=== PATIENT | male | born 1980 | race Caucasian/White ===

== ENCOUNTER → 2024-04-11 | Outpatient (CLI) | payer OTHER, SELFPAY ==
[2024-04-11 12:48] LABS: Basophils % (Auto) 0 % (0-2.5); Eosinophils # (Auto) 0.2 Thou/mm3 (0.0-0.5); Eosinophils % (Auto) 2 % (0-10); Hematocrit 46.6 % (41.0-53.0); Hemoglobin 15.5 g/dL (13.5-16.0); Immature Granulocytes % (Auto) 3 % (0-0); Immature Granulocytes Auto 0.22 Thou/mm3 (0.00-0.00); Lymphocytes # (Auto) 2.6 Thou/mm3 (1.0-4.8); Lymphocytes % (Auto) 36 % (10-50); Mean Corpuscular HGB Conc 33.3 g/dl (31.0-37.0); Mean Corpuscular Hemoglobin 28.6 pg (25.0-35.0); Mean Corpuscular Volume 86 fL (80-100); Monocytes # (Auto) 0.6 Thou/mm3 (0.0-0.8); Monocytes % (Auto) 8 % (0-12); Neutrophils # (Auto) 3.7 Thou/mm3 (1.8-7.7); Neutrophils % (Auto) 51 % (37-80); Nucleated Red Blood Cell % 0 /100 WBC (0); Platelet Count 285 Thou/mm3 (140-440); RDW Standard Deviation 40.2 fL (35.1-43.9); Red Blood Count 5.42 Miln/mm3 (4.50-5.90); White Blood Count 7.4 Thou/mm3 (3.8-10.6)
[2024-04-11 12:58] LABS: Glucose Estimated Average 151 mg/dL (80-131); Hemoglobin A1C 6.9 % Hgb (4.8-6.0)
[2024-04-11 13:03] LABS: Creatinine MALB Rnd Ur 126 mg/dL (30-125); Microalbumin Creat Ratio 2 mg/gCrea (<30); Microalbumin, Random Urine 3 mg/L (0-300)
[2024-04-11 13:07] LABS: Alanine Aminotransferase 47 U/L (10-49); Albumin, Serum 4.4 gm/dL (3.5-5.0); Albumin/Globulin Ratio 1.9 (1.2-2.2); Alkaline Phosphatase 46 U/L (46-116); Anion Gap 5 (7-16); Aspartate Amino Transferase 22 U/L (0-34); BUN/Creatinine Ratio 16 Ratio (12-20); Bilirubin,Total 0.5 mg/dL (0.3-1.2); Blood Urea Nitrogen 16 mg/dL (9-23); C-Reactive Protein < 0.4 mg/dL (0.0-0.9); Calcium 9.5 mg/dL (8.3-10.6); Calcium (Corrected) 9.5 mg/dL (8.5-10.1); Carbon Dioxide 26.6 mMol/L (20.0-31.0); Chloride 106 mMol/L (98-107); Globulin 2.3 gm/dL (2.3-3.5); Glucose 131 mg/dL (74-106); Osmolality,Calculated 278 (275-295); Potassium 4.7 mMol/L (3.4-5.1); Sodium 138 mMol/L (136-145); Thyroid Stimulating Hormone 1.67 uIU/mL (0.55-4.78); Total Protein 6.7 gm/dL (5.7-8.2); eGFR > 60 See Note
[2024-04-11 13:20] LABS: Sed Rate (ESR) 27 mm/hr (0-15)
== END | disposition home or self-care (01) ==
LOC: COPL 11:29
PROVIDERS: PCP Specialist; Referring Provider Specialist; Visit Provider Specialist
DX: I10 Essential (primary) hypertension (principal)
CPT/HCPCS: 36415; 80053; 82043; 82570; 83036; 84443; 85025; 85652; 86140

== ENCOUNTER → 2024-05-19 | Outpatient (CLI) | payer OTHER, SELFPAY ==
[2024-05-19 11:56] LABS: Glucose Estimated Average 140 mg/dL (80-131); Hemoglobin A1C 6.5 % Hgb (4.8-6.0)
[2024-05-19 12:05] LABS: Creatinine MALB Rnd Ur 138 mg/dL (30-125); Microalbumin, Random Urine < 3 mg/L (0-300)
[2024-05-19 12:10] LABS: Alanine Aminotransferase 23 U/L (10-49); Albumin, Serum 4.7 gm/dL (3.5-5.0); Albumin/Globulin Ratio 1.9 (1.2-2.2); Alkaline Phosphatase 46 U/L (46-116); Anion Gap 7 (7-16); Aspartate Amino Transferase 15 U/L (0-34); BUN/Creatinine Ratio 16 Ratio (12-20); Bilirubin,Total 0.6 mg/dL (0.3-1.2); Blood Urea Nitrogen 18 mg/dL (9-23); Calcium 10.1 mg/dL (8.3-10.6); Calcium (Corrected) 10.1 mg/dL (8.5-10.1); Carbon Dioxide 26.9 mMol/L (20.0-31.0); Cardiac Risk Estimate 4.6 RATIO (4.0-6.7); Chloride 105 mMol/L (98-107); Cholesterol 230 mg/dL (132-200); Creatinine (Component) 1.1 mg/dL (0.6-1.3); Globulin 2.5 gm/dL (2.3-3.5); Glucose 112 mg/dL (74-106); HDL Cholesterol 50 mg/dL (40-60); LDL Cholesterol,Calculated 161 mg/dL (0-130); Osmolality,Calculated 280 (275-295); Potassium 4.8 mMol/L (3.4-5.1); Sodium 139 mMol/L (136-145); Total Protein 7.2 gm/dL (5.7-8.2); Triglycerides 96 mg/dL (30-150); eGFR > 60 See Note
== END | disposition home or self-care (01) ==
LOC: COPL 10:30
PROVIDERS: PCP Specialist; Referring Provider Specialist; Visit Provider Specialist
DX: E11.65 Type 2 diabetes mellitus with hyperglycemia (principal)
CPT/HCPCS: 36415; 80053; 80061; 82043; 82570; 83036

== ENCOUNTER → 2024-07-12 | Outpatient (CLI) | payer OTHER, SELFPAY ==
[2024-07-12 12:18] LABS: Glucose Estimated Average 131 mg/dL (80-131); Hemoglobin A1C 6.2 % Hgb (4.8-6.0)
[2024-07-12 13:11] LABS: Alanine Aminotransferase 23 U/L (10-49); Albumin, Serum 4.3 gm/dL (3.5-5.0); Albumin/Globulin Ratio 1.5 (1.2-2.2); Alkaline Phosphatase 50 U/L (46-116); Anion Gap 6 (7-16); Aspartate Amino Transferase 20 U/L (0-34); BUN/Creatinine Ratio 13 Ratio (12-20); Bilirubin,Total 0.6 mg/dL (0.3-1.2); Blood Urea Nitrogen 14 mg/dL (9-23); Calcium 9.8 mg/dL (8.3-10.6); Calcium (Corrected) 9.8 mg/dL (8.5-10.1); Chloride 105 mMol/L (98-107); Creatinine (Component) 1.1 mg/dL (0.6-1.3); Globulin 2.8 gm/dL (2.3-3.5); Glucose 104 mg/dL (74-106); Osmolality,Calculated 279 (275-295); Potassium 4.8 mMol/L (3.4-5.1); Sodium 140 mMol/L (136-145); Total Protein 7.1 gm/dL (5.7-8.2); eGFR > 60 See Note
[2024-07-12 13:25] LABS: Cholesterol 195 mg/dL (132-200); HDL Cholesterol 49 mg/dL (40-60); LDL Cholesterol,Calculated 125 mg/dL (0-130); Triglycerides 104 mg/dL (30-150)
[2024-07-12 14:02] LABS: Creatinine MALB Rnd Ur 139 mg/dL (30-125); Microalbumin, Random Urine < 3 mg/L (0-300)
== END | disposition home or self-care (01) ==
LOC: COPL 11:33
PROVIDERS: PCP Specialist; Referring Provider Specialist; Visit Provider Specialist
DX: E11.69 Type 2 diabetes mellitus with other specified complication (principal)
CPT/HCPCS: 36415; 80053; 80061; 82043; 82570; 83036

== ENCOUNTER 2024-08-28 11:03 | Emergency (ER) | payer OTHER, SELFPAY ==
[2024-08-28 11:05] VITALS: BMI 38.4
--- NOTE | 2024-08-28 11:34 | XR_ITS ---
Examination: CT abdomen and pelvis without contrast. Coronal 3-D reconstructions. Sagittal 2-D reconstructions. Date and time of exam:August 28, 2024 1215 hours INDICATIONS: Left-sided flank pain with nausea vomiting beginning this morning CTDI: vol (mGy): 12.8 DLP: (mGycm): 888 Technique: Axial images of the abdomen have been obtained, 3 mm slice thickness Intravenous contrast material has not been administered. Low dose protocols were performed. One or more of the following dose reduction techniques were used; automated exposure control, adjustment of the mA and/or KV according to patient size, use of iterative reconstruction technique. Findings: No focal liver or splenic lesion No gallstones No pancreatic or adrenal mass Bilateral tiny 1 to 2 mm renal calculi No hydronephrosis or ureteral calculi Aorta normal size Normal appendix No bowel obstruction 2 mm calculus in the urinary bladder IMPRESSION: Tiny bilateral nonobstructing renal calculi No hydronephrosis or ureteral calculi 2 mm calculus in the urinary bladder
--- NOTE | 2024-08-28 11:34 | PD.EDABDPN ---
ED Abdominal Pain RME/HPI General Chief Complaint: Abdominal Pain Stated complaint: SHARP PAIN L) SIDE/FLANK/ABD (01/14) Arrival date/time: 08/28/24 11:03 43-year-old male with no known medical history presents to the emergency room with a chief complaint of left-sided flank pain and abdominal pain x 1 day Source: patient Mode of arrival: ambulatory Limitations: no limitations Related Data Home Medications ?Medication ?Instructions ?Recorded ?Confirmed multivitamin 1 tab PO QAM 01/19/23 01/20/23 amoxicillin 875 mg-potassium 1 tab PO BID 01/20/23 01/20/23 clavulanate 125 mg tablet Allergies Allergy/AdvReac Type Severity Reaction Status Date / Time No Known Allergies Allergy Verified 08/28/24 11:09 ED Exam General Limitations: Present no limitations Course Orders Category Date Time Status CT abdomen pelvis wo con Stat Exams 08/28/24 11:34 Ordered CBC Stat Lab 08/28/24 11:34 Ordered CMP [Comprehensive Metabolic Panel] Stat Lab 08/28/24 11:34 Ordered Lipase Stat Lab 08/28/24 11:34 Ordered UA [Urinalysis] Stat Lab 08/28/24 11:34 Ordered Urine Culture Stat Lab 08/28/24 11:34 Ordered Discharge Plan Prescriptions/Referrals Prescriptions/Med Rec: No Action multivitamin Tablet 1 tab PO QAM amoxicillin-pot clavulanate 875-125 mg tablet 1 tab PO BID Patient Comments: TAKE 1 TABLET BY MOUTH TWICE A DAY Patient/Caregiver Discharge Instructions Print Language: Romanian
[2024-08-28 11:35] VITALS: BP 123/76; PULSE 98; RESP 18; TEMP 37; O2SAT 97; BMI 40.1
--- NOTE | 2024-08-28 11:36 | PD.EDRME ---
Rapid Medical Screening Exam RME Arrival date/time: 08/28/24 11:03 43-year-old male with no known medical history presents to the emergency room with a chief complaint of left-sided flank pain and abdominal pain x 1 day I have greeted and performed a focused initial assessment of this patient. A comprehensive ED assessment and evaluation of the patient, analysis of all test results, and completion of the medical decision making process will be conducted by additional ED providers. Chief Complaint: Abdominal Pain Time Seen by Provider: 08/28/24 11:35 Vital signs: Vital Signs Temperature 98.6 F 08/28/24 11:35 Pulse Rate 98 08/28/24 11:35 Respiratory Rate 18 08/28/24 11:35 Blood Pressure 123/76 08/28/24 11:35 Pulse Oximetry (%) 97 08/28/24 11:35 Oxygen Delivery Method CPAP 08/28/24 11:35 Vital signs reviewed by provider: Yes
[2024-08-28 12:34] LABS: Basophils % (Auto) 0 % (0-2.5); Eosinophils % (Auto) 0 % (0-10); Hematocrit 46.6 % (41.0-53.0); Hemoglobin 15.9 g/dL (13.5-16.0); Immature Granulocytes % (Auto) 1 % (0-0); Immature Granulocytes Auto 0.06 Thou/mm3 (0.00-0.00); Lymphocytes % (Auto) 12 % (10-50); Mean Corpuscular HGB Conc 34.1 g/dl (31.0-37.0); Mean Corpuscular Hemoglobin 28.6 pg (25.0-35.0); Mean Corpuscular Volume 84 fL (80-100); Monocytes # (Auto) 0.5 Thou/mm3 (0.0-0.8); Monocytes % (Auto) 6 % (0-12); Neutrophils # (Auto) 7.2 Thou/mm3 (1.8-7.7); Neutrophils % (Auto) 82 % (37-80); Nucleated Red Blood Cell % 0 /100 WBC (0); Platelet Count 259 Thou/mm3 (140-440); RDW Standard Deviation 38.5 fL (35.1-43.9); Red Blood Count 5.55 Miln/mm3 (4.50-5.90); White Blood Count 8.9 Thou/mm3 (3.8-10.6)
[2024-08-28 12:44] LABS: Collection Type, Urine Clean Catch
[2024-08-28 12:58] LABS: Bilirubin,Urine Negative (Negative); Blood,Urine 3+ (Negative); Color,Urine Yellow (Lt Yel-Yel); Glucose, Urine Negative (Negative); Ketones,Urine Negative (Negative); Leukocyte Esterase,Urine Negative (Negative); Nitrite,Urine Negative (Negative); PH,Urine 5.5 (5.0-7.0); Protein,Urine Negative (Neg - Trace); RBC,Urine 85 /hpf (0-3); Specific Gravity,Urine 1.021 (1.001-1.035); Squamous Epithelial Cell,Urine < 1 /hpf (0-5); Urobilinogen,Urine Negative mg/dL (0.0-1.0); WBC,Urine 2 /hpf (0-5)
[2024-08-28 13:06] LABS: Alanine Aminotransferase 19 U/L (10-49); Albumin, Serum 4.3 gm/dL (3.5-5.0); Albumin/Globulin Ratio 1.5 (1.2-2.2); Alkaline Phosphatase 45 U/L (46-116); Anion Gap 8 (7-16); Aspartate Amino Transferase 17 U/L (0-34); BUN/Creatinine Ratio 11 Ratio (12-20); Bilirubin,Total 0.5 mg/dL (0.3-1.2); Blood Urea Nitrogen 14 mg/dL (9-23); Calcium 9.5 mg/dL (8.3-10.6); Calcium (Corrected) 9.5 mg/dL (8.5-10.1); Carbon Dioxide 26.6 mMol/L (20.0-31.0); Chloride 103 mMol/L (98-107); Creatinine (Component) 1.3 mg/dL (0.6-1.3); Estimated Creatinine Clearance 93.1 mL/min (>60); Globulin 2.9 gm/dL (2.3-3.5); Glucose 165 mg/dL (74-106); Lipase 56 U/L (12-53); Osmolality,Calculated 280 (275-295); Potassium 4.4 mMol/L (3.4-5.1); Sodium 138 mMol/L (136-145); Total Protein 7.2 gm/dL (5.7-8.2); eGFR > 60 See Note
[2024-08-28 13:09] LABS: Clarity,Urine Hazy (Clear/Hazy)
[2024-08-28 13:28] VITALS: BP 117/72; PULSE 88; RESP 12; TEMP 37.1; O2SAT 97
--- NOTE | 2024-08-28 13:36 | PD.EDABDPN ---
ED Abdominal Pain RME/HPI General Chief Complaint: Abdominal Pain Stated complaint: SHARP PAIN L) SIDE/FLANK/ABD (01/14) Time seen by provider: 08/28/24 11:35 Arrival date/time: 08/28/24 11:03 43 year old male present to emergency room with c/o of sharp bilateral flank pain this morning. pt denies any similar symptoms in the past. LOCATION: flank/abd pain SEVERITY: Symptoms are described as being severe with limitations on activities of daily living QUALITY: Symptoms are described as being cramping CONTEXT: The patient is unable to identify any inciting events. DURATION/TIMING: The symptoms started approximately one day ago and have been waxing/waning but always present without ever completely resolving. ASSOCIATED SYMPTOMS: The patient is unable to identify any other associated symptoms. MODIFYING FACTORS: The patient is unable to identify any alleviating or aggravating symptoms. PERTINENT ROS: no fevers, no anorexia, no nausea or vomiting, no diarrhea, no ripping or tearing sensations, no syncope or presyncopal symptoms, denies trauma, denies genital pain REVIEW OF SYSTEMS: See History of Present Illness - with the exception of those mentioned in the history of present illness, all other systems reviewed and reported as negative GENERAL: In general the patient is awake, interactive, in an emergency department gurney. HEAD/EYES/EARS/NOSE/THROAT: normo-cephalic, atraumatic, mucus membranes are moist, anicteric, palpebral conjunctiva is pink, trachea is midline. CARDIOVASCULAR: regular rate and regular rhythm, no murmurs, heart sounds are not distant, strong pulses in all four extremities that are equal and symmetric bilateral upper and lower extremities, normal capillary refill. CHEST/PULMONARY: normal chest rise and fall, good air movement, clear to auscultation bilaterally, normal inspiratory to expiratory ratios without evidence of respiratory distress. NECK: No midline/Paraspinal tenderness, no step off ROM/Strenght intact No Kernig and bruzinski sign. No trauma ABDOMEN: soft, not tender, no masses appreciated BACK: normal range of motion without pain. ( no pain currently) NEUROLOGICAL: cranio-facial features are symmetric, moves all four extremities equally without obvious limitations or weakness. EXTREMITY: no tenderness to palpation over the long bones or large joints of the bilateral upper and lower extremities, no joint swelling, no joint erythema, no signs of trauma, no unilateral leg swelling and no peripheral edema. SKIN: warm, dry, well-perfused, no jaundice, no rash, no telangiectasias or petechia. PSYCH: calm, cooperative, no evidence of psychosis or agitation RME / HPI RME / HPI narrative: 08/28/24 11:03 43-year-old male with no known medical history presents to the emergency room with a chief complaint of left-sided flank pain and abdominal pain x 1 day I have greeted and performed a focused initial assessment of this patient. A comprehensive ED assessment and evaluation of the patient, analysis of all test results, and completion of the medical decision making process will be conducted by additional ED providers. Related Data Home Medications ?Medication ?Instructions ?Recorded ?Confirmed multivitamin 1 tab PO QAM 01/19/23 01/20/23 amoxicillin 875 mg-potassium 1 tab PO BID 01/20/23 01/20/23 clavulanate 125 mg tablet Previous Rx's ?Medication ?Instructions ?Recorded ibuprofen 800 mg tablet (IBU) 800 mg PO TID PRN fever or pain 08/28/24 #30 tabs ondansetron 4 mg disintegrating 4 mg PO Q8H PRN nausea and 08/28/24 tablet vomiting #20 tabs tamsulosin 0.4 mg capsule 0.4 mg PO QDAY #20 caps 08/28/24 Allergies Allergy/AdvReac Type Severity Reaction Status Date / Time No Known Allergies Allergy Verified 08/28/24 11:09 Course Course Course Narrative: review basic labs, CT Quality Measures none Orders Category Date Time Status CT abdomen pelvis wo con Stat Exams 08/28/24 11:34 Completed CBC Stat Lab 08/28/24 11:56 Completed CMP [Comprehensive Metabolic Panel] Stat Lab 08/28/24 11:56 Completed Lipase Stat Lab 08/28/24 11:56 Completed UA [Urinalysis] Stat Lab 08/28/24 12:15 Completed Urine Culture Stat Lab 08/28/24 12:15 Received Reevaluation(s) Reevaluation #1: pt is pain free, and decline any IV fluids or pain medication strainer given to patient. Vital Signs Vital signs: Vital Signs Temperature 98.6 F 08/28/24 11:35 Pulse Rate 98 08/28/24 11:35 Respiratory Rate 18 08/28/24 11:35 Blood Pressure 123/76 08/28/24 11:35 Pulse Oximetry (%) 97 08/28/24 11:35 Oxygen Delivery Method CPAP 08/28/24 11:35 Abdominal Pain MDM MDM Narrative MDM Narrative:: Presentation most consistent with Renal Colic from a Non-infected Kidney Stone. Given History and Exam I have lower suspicion for atypical appendicitis, genital torsion, acute cholecystitis, AAA, Aortic Dissection, Serious Bacterial Illness or other emergent intraabdominal pathology. Workup: CBC, CMP, CT Abd/Pelvis noncontrast, UA, reassess Findings:Tiny bilateral nonobstructing renal calculi No hydronephrosis or ureteral calculi 2 mm calculus in the urinary bladder cbc/cmp wnl urine + rbc no infection Reassesment: Patient tolerating PO and pain controlled Disposition:? Discharge. Strict return precautions for infected stone or PO intolerance discussed. Patient data External records reviewed:: [facility] previous records Clinical information provided by:: patient Social determinants that could affect healthcare access:: none Patient has the following chronic illnesses:: n/a How is presenting disease/condition affected by chronic disease/condition?: no chronic disease Evaluation data The following diagnostics were reviewed and interpreted by me:: lab results and radiology exam(s) Lab and/or radiology exams considered but not ordered:: n/a Interpretation Summary: CT:?No focal liver or splenic lesion No gallstones No pancreatic or adrenal mass Bilateral tiny 1 to 2 mm renal calculi No hydronephrosis or ureteral calculi Aorta normal size Normal appendix No bowel obstruction 2 mm calculus in the urinary bladder IMPRESSION: Tiny bilateral nonobstructing renal calculi No hydronephrosis or ureteral calculi 2 mm calculus in the urinary bladder cbc/cmp no acute findings urine + rbc Medications / Prescriptions Medications or Prescriptions considered but not ordered:: n/a Medication administrations:: n/a Consultations Consultation(s) initiated? (list below): No Diagnosis Differential diagnosis abdominal pain: abdominal pain, acute appendicitis, calculus of kidney, constipation, diverticulitis, pancreatitis and small bowel obstruction Most likely diagnosis given after review of the tests above:: uvj stone, kidney stone Admission Indicated Admission indicated?: not indicated Admission Request Was there a request for admission?: No Disposition Plan Disposition Plan: Discharge Discharge Attestation Discharge Attestation: The patient and all family members were given an opportunity to ask questions and understood the discharge instructions. Discharge instructions specifically effects, indications for sooner follow up or return to the emergency department, and the expected course of current diagnosis. Patient condition: Stable Discharge Plan Plan Patient Disposition: HOME (Self Care) Health Concerns: Follow with PMD as directed Take tylenol or motrin as need Return to ED if sx worsen Prescriptions/Referrals Prescriptions/Med Rec: New tamsulosin 0.4 mg capsule 0.4 mg PO QDAY Qty: 20 0RF ibuprofen [IBU] 800 mg tablet 800 mg PO TID PRN (Reason: fever or pain) Qty: 30 0RF ondansetron 4 mg tablet,disintegrating 4 mg PO Q8H PRN (Reason: nausea and vomiting) Qty: 20 0RF No Action multivitamin Tablet 1 tab PO QAM amoxicillin-pot clavulanate 875-125 mg tablet 1 tab PO BID Patient Comments: TAKE 1 TABLET BY MOUTH TWICE A DAY Referrals: No Primary/Family,Physician [Primary Care Provider] - In 1 week Problem List Clinical Impression: Calculus of kidney Patient/Caregiver Discharge Instructions Education Materials: ED Kidney Stone, Passed Print Language: Korean Stand Alone Forms: Marina Award Info., Patient Portal Info Letter
== END 2024-08-28 13:52 | disposition home or self-care (01) ==
PROVIDERS: Nurse Practitioner Family; Emergency Provider Emergency Medicine
DX: N20.0 Calculus of kidney (principal); N21.0 Calculus in bladder
CPT/HCPCS: 36415; 74176; 80053; 81001; 83690; 85025; 87086; 99284

== ENCOUNTER → 2024-10-16 | Outpatient (CLI) | payer OTHER, SELFPAY ==
[2024-10-16 12:08] LABS: Alanine Aminotransferase 18 U/L (10-49); Albumin, Serum 4.4 gm/dL (3.5-5.0); Albumin/Globulin Ratio 1.6 (1.2-2.2); Alkaline Phosphatase 47 U/L (46-116); Anion Gap 8 (7-16); Aspartate Amino Transferase 15 U/L (0-34); BUN/Creatinine Ratio 14 Ratio (12-20); Bilirubin,Total 0.5 mg/dL (0.3-1.2); Blood Urea Nitrogen 17 mg/dL (9-23); Calcium 9.3 mg/dL (8.3-10.6); Calcium (Corrected) 9.3 mg/dL (8.5-10.1); Carbon Dioxide 27.2 mMol/L (20.0-31.0); Cardiac Risk Estimate 3.7 RATIO (4.0-6.7); Chloride 104 mMol/L (98-107); Cholesterol 163 mg/dL (132-200); Creatinine (Component) 1.2 mg/dL (0.6-1.3); Globulin 2.7 gm/dL (2.3-3.5); Glucose 115 mg/dL (74-106); HDL Cholesterol 44 mg/dL (40-60); LDL Cholesterol,Calculated 103 mg/dL (0-130); Osmolality,Calculated 280 (275-295); Potassium 4.8 mMol/L (3.4-5.1); Sodium 139 mMol/L (136-145); Total Protein 7.1 gm/dL (5.7-8.2); Triglycerides 78 mg/dL (30-150); eGFR > 60 See Note
[2024-10-16 12:24] LABS: Creatinine MALB Rnd Ur 188 mg/dL (30-125); Microalbumin, Random Urine < 3 mg/L (0-300)
[2024-10-16 12:44] LABS: Glucose Estimated Average 131 mg/dL (80-131); Hemoglobin A1C 6.2 % Hgb (4.8-6.0)
== END | disposition home or self-care (01) ==
PROVIDERS: PCP Specialist; Referring Provider Specialist; Visit Provider Specialist
DX: E11.69 Type 2 diabetes mellitus with other specified complication (principal)
CPT/HCPCS: 36415; 80053; 80061; 82043; 82570; 83036

== ENCOUNTER → 2024-10-19 | Outpatient (CLI) | payer OTHER, SELFPAY ==
[2024-10-27 17:50] LABS: Stone Analysis Source KIDNEY
[2024-10-31 06:54] LABS: Stone Analysis Weight 0.009 g
== END | disposition home or self-care (01) ==
LOC: SLDO 14:19
PROVIDERS: PCP Specialist; Referring Provider Specialist; Visit Provider Specialist
DX: N20.0 Calculus of kidney (principal)
CPT/HCPCS: 82365

== ENCOUNTER → 2025-02-19 | Outpatient (CLI) | payer OTHER, SELFPAY ==
[2025-02-19 11:15] LABS: Alanine Aminotransferase 19 U/L (10-49); Albumin, Serum 4.1 gm/dL (3.5-5.0); Albumin/Globulin Ratio 2.0 (1.2-2.2); Alkaline Phosphatase 51 U/L (46-116); Anion Gap 8 (7-16); Aspartate Amino Transferase 15 U/L (0-34); BUN/Creatinine Ratio 12 Ratio (12-20); Bilirubin,Total 0.5 mg/dL (0.3-1.2); Blood Urea Nitrogen 13 mg/dL (9-23); Calcium 9.6 mg/dL (8.3-10.6); Calcium (Corrected) 9.6 mg/dL (8.5-10.1); Carbon Dioxide 28.7 mMol/L (20.0-31.0); Cardiac Risk Estimate 3.7 RATIO (4.0-6.7); Chloride 103 mMol/L (98-107); Cholesterol 197 mg/dL (132-200); Creatinine (Component) 1.1 mg/dL (0.6-1.3); Globulin 2.1 gm/dL (2.3-3.5); Glucose 170 mg/dL (74-106); HDL Cholesterol 53 mg/dL (40-60); LDL Cholesterol,Calculated 119 mg/dL (0-130); Osmolality,Calculated 283 (275-295); Potassium 5.2 mMol/L (3.4-5.1); Sodium 140 mMol/L (136-145); Total Protein 6.2 gm/dL (5.7-8.2); Triglycerides 127 mg/dL (30-150); eGFR > 60 See Note
[2025-02-19 11:46] LABS: Glucose Estimated Average 134 mg/dL (80-131); Hemoglobin A1C 6.3 % Hgb (4.8-6.0)
== END | disposition home or self-care (01) ==
LOC: COPL 09:58
PROVIDERS: PCP Specialist; Referring Provider Specialist; Visit Provider Specialist
DX: E11.69 Type 2 diabetes mellitus with other specified complication (principal)
CPT/HCPCS: 36415; 80053; 80061; 83036